=== PATIENT | female | born 1980 | race Caucasian/White ===

== ENCOUNTER 2020-09-02 09:30 | Outpatient (REF) | payer MEDICARE, MEDICAID, SELFPAY | END 2020-09-02 09:31 | disposition home or self-care (01) | LOC: HO.LAB 09:30 | PROVIDERS: Visit Provider Internal Medicine | DX: Z20.822 Contact with and (suspected) exposure to COVID-19 (principal) | CPT/HCPCS: C9803; U0003; U0005 ==

== ENCOUNTER 2021-01-01 10:27 | Outpatient (REF) | payer MEDICARE, MEDICAID, SELFPAY ==
[2021-01-01 12:07] LABS: COVID-19 Test Negative (Negative)
== END 2021-01-01 10:28 | disposition home or self-care (01) ==
LOC: HO.LAB 10:27
PROVIDERS: Visit Provider Internal Medicine
DX: Z20.822 Contact with and (suspected) exposure to COVID-19 (principal)
CPT/HCPCS: 36415; 87635; C9803

== ENCOUNTER 2021-01-14 09:08 | Outpatient (REF) | payer MEDICARE, MEDICAID, SELFPAY | END 2021-01-14 09:09 | disposition home or self-care (01) | LOC: HO.LAB 09:08 | PROVIDERS: Visit Provider Internal Medicine | DX: Z20.822 Contact with and (suspected) exposure to COVID-19 (principal) | CPT/HCPCS: C9803; U0003; U0005 ==

== ENCOUNTER 2025-03-06 14:59 | Outpatient (AMB) | payer MEDICARE, MEDICAID, SELFPAY ==
--- NOTE | 2025-03-06 15:28 | A.OFFVIS_ITS ---
Intake Visit Reasons: migraines Allergies No Known Allergies Allergy (Verified 03/01/25 10:26) Medication List - Last Reconciled 03/06/25 by Jeannette Barragan MD galcanezumab-gnlm (Emgality Pen) 120 mg subcut QMONTH 30 days sumatriptan succinate take 1 tab at onset of headache; if no relief may repeat 1 tab after at least 2 hrs; max = 4 tabs/24 hr PO HPI Comments Details: This is a 44-year-old right-handed woman with a history of migraine headaches since age 13. She is currently getting migraines 2 to 3 times a week and they can last from 3-4 hours up to 24 hours. She usually takes Excedrin 2 tablets followed by 25-50 mg of sumatriptan because the sumatriptan makes her too drowsy. Her most recent prophylactic medication was topiramate 50 mg a day, and about 5 years ago propranolol was prescribed by Dr. Mg but she does not remember taking it. She does not have a list of medicines that have been tried in the past, but she has never had any injectables. Apparently, according to Dr. Mg's note from 2019 she has also tried naratriptan and ondansetron in the past. Previous CAT scan of the brain and MRI in 2020 were normal. The migraines can be triggered by stress, strong smells and chocolate. She does not get menstrual cycles. The headache is usually pulsating/ throbbing starting in the right temporal most of the time and can get intense where she is nonfunctional. It can spread to the back of the head. It is associated with nausea, rare vomiting, usually with sensitivity to lights, noises and smells, and some dizziness and difficulty concentrating. Two of her sons also have migraines. She has previously had some head trauma without loss of consciousness. She sleeps from 21:00 to 04:00 fairly sound sleep. She has some mild snoring. Does not wake up gasping for air. She has 2 cups of coffee a day does not drink alcohol and does not smoke. Currently she is only taking sumatriptan p.r.n.. She also complains of memory problems in the last year particularly for short- term memory. She works as a cleaning service and management of homes [facility] Medical History (Updated 03/06/25 @ 15:40 by Jeannette Barragan MD) Fibromyalgia Migraines Review of Systems Const Reports headache(s) and Reports weight gain Eyes Reports blurry vision ENT Reports dizziness, Reports headache(s) and Reports nasal congestion GI Reports constipation and Reports nausea Neuro Reports dizziness, Reports headache(s) and Reports memory loss Psych Reports memory loss Physical Exam Neuro Other: ?Mini Mental Status Exam Level of Consciousness:?Alert.? Orientation:?Knows correct year, month, date, day and season.?Knows correct city, county and state. Knows correct location and floor.? Registration:?Able to register 3 objects.? Attention:?Serial 7's performed accurately.? Recall:?Able to recall 3 out of 3 objects.? Language:?Normal spontaneous speech, fluency, repetition, naming, comprehension, reading, and writing.? Total Score:?30/30.? Neurological Abnormal neurological findings:??none.? Mental Status:?Alert and oriented X 3.?Normal attention, orientation, memory, and affect.? Cranial Nerves:?Pupils are equal, round and reactive to light. Fundoscopy shows normal disc bilaterally. External occular muscles are intact. Visual nugent are full, no ptosis. Face is symmetrical, no facial weakness or droop. Facial sensations are normal. Tongue protrudes in midline. Palate elevates symmetrically. Shoulder shrugging is normal.? Motor Examination:?Normal muscle tone, bulk and strength.?No atrophy or fasciculations.?No drift of the extended upper extremities.?Deep tendon reflex es are 2+.?Plantars are flexor.? Motor Strength:? Proximal Muscles (out of 5):?5 Distal Muscles (out of 5):?5 Neck Flexors (out of 5):?5 Neck Extensors (out of 5):?5 Deltoid (out of 5):?5 Biceps (out of 5):?5 Triceps (out of 5):?5 Serratus Anterior (out of 5):?5 Wrist Extensors (out of 5):?5 APB (out of 5):?5 Finger Spread (out of 5):?5 Ileopsoas (out of 5):?5 Quadriceps (out of 5):?5 Hamstrings (out of 5):?5 Tibialis Anterior (out of 5):?5 Peronei (out of 5):?5 EDB (out of 5):?5 Gastrocnemius (out of 5):?5 Straight Leg Raising:?90 degrees.? Sensory Exam:?Normal light touch, temperature, pinprick, vibration and joint-position sensations.?Rhomberg sign is absent.? Coordination:?No ataxia,?no titubation,?rtvjxt-os-rjou, cwby-ipcy-bwem test, and rapid alternating movements were normal.? Gait Exam:?Within normal limits.? Cerebellar Signs:?Qpgsfe-zi-bnmp and hxpx-rf-qbry is normal.?No dysdiadochokinesia.? Extrapyramidal System:?No tremor or?rigidity, normal facial expressions.?No bradykinesia. No bradyphrenia. Normal arm swing and posture. No propulsion or retropulsion.? Speech:?Normal,?no dysphasia or dysarthria.? General Examination GENERAL APPEARANCE:??normal,?in no acute distress?,?normal,?in no acute distress.? HEAD:??normocephalic,?atraumatic.? EYES:??sclera non-icteric,?conjunctiva clear.? EARS:??auditory canal clear,?tympanic membrane intact, clear.? NOSE:??no lesions.? ORAL CAVITY:??gums normal,?mucosa moist,?no lesions.? THROAT:??clear.? NECK/THYROID:??no cervical lymphadenopathy,?thyroid normal,?neck supple, full range of motion,?no carotid bruit.? SKIN:??no rashes,?no significant birthmarks.? HEART:??S1, S2 normal,?no murmurs?,?S1, S2 normal,?no murmurs.? LUNGS:??clear anteriorly and posteriorly?,?clear anteriorly and posterio rly.? CHEST:??no gross rib deformity,?clear to auscultation.? BACK:??normal exam of spine.? MUSCULOSKELETAL:??normal.? EXTREMITIES:??no edema?,?no edema.? PERIPHERAL PULSES:??normal.? PSYCH:??alert, oriented,?cognitive function intact,?cooperative with exam?,?alert, oriented,?cognitive function intact,?cooperative with exam.? Assessment & Plan Assessment & Plan (1) Migraines: Code(s): G43.909 - Migraine, unspecified, not intractable, without status migrainosus Category: Medical (2) Memory loss: Code(s): R41.3 - Other amnesia Category: Medical Plan Emgality inj monthly for migraine prophylaxis, EEG Orders: Orders EEG Routine Today R41.3 - Other amnesia Medications: New galcanezumab-gnlm (Emgality Pen) 120 mg subcut QMONTH 1 mL 5RF 30 days Coding Level of Care Code New Pt Level 5 (32016) Diagnoses Migraines G43.909 Memory loss R41.3
== END 2025-03-06 15:52 | disposition home or self-care (01) ==
LOC: HO.HSM 14:59
PROVIDERS: Visit Provider Psychiatry & Neurology Neurology
DX: G43.909 Migraine, unspecified, not intractable, without status migrainosus (principal); R41.3 Other amnesia
CPT/HCPCS: 99204

== ENCOUNTER → 2025-03-06 14:59 | Outpatient (BNVA) | payer MEDICARE, MEDICAID, SELFPAY | PROVIDERS: Visit Provider Psychiatry & Neurology Neurology | DX: G43.909 Migraine, unspecified, not intractable, without status migrainosus (principal); R41.3 Other amnesia | CPT/HCPCS: 99202 ==

== ENCOUNTER 2025-04-16 08:15 | Outpatient (REF) | payer MEDICARE, MEDICAID, SELFPAY ==
--- OUTSIDE RECORDS SUMMARY | 2025-04-16 08:18 | XMS_ITS | Clinical Summary ---
Author Organization [facility] it Address [id number] [place] [id number] Care Team Providers Care Dining Service Supervisor Name Role Phone Cherry Monroe MD Primary Care Provider [phone] Surgical History Surgery Date Site/Laterality Comments TUBAL LIGATION PROCEDURE: HISTORICAL TUBAL LIGATION Medical History Medical History Date Comments Asthma 11/16/2017 DX:Asthma Bipolar disorder (CMS/HCC V2 4, CMS/HCC V28) 11/16/2017 DX:Bipolar disorder (HCC) Low grade squamous intraepit helial lesion (LGSIL) on cervical Pap smear 11/16/2017 DX:Low grade squa mous intraepithelial lesion (LGSIL) on cervical Pap smear Migraine with aura 11/16/2017 DX:Migraine w ith aura Obsessive compulsive disorder 11/16/2017 DX :Obsessive compulsive disorder Anxiety and depression 03/01/2018 DX:Anxiet y and depression Varicose veins of both lower extremities with pain 03/01/2018 DX:Varicose veins of both lo wer extremities with pain Family History Medical History Relation Name Comments Stroke Brother Diabetes Father htn Stroke Maternal Grandfather Other: epilepsy Mother diabetes, as thma Relation Name Status Comments Brother Alive Father Maternal Grandfather Alive Mother Alive Social History Tobacco Use Types Packs/Day Years Used Date Smoking Tobacco: Never Smokeless Tobacco: Never Alcohol Use Standard Drinks/Week Comments No 0 (1 standard drink = 0.6 oz pur e alcohol) Comments Unknown Sex and Gender Information Value Date Recorded Sex Assigned at Not on file Legal Sex Female 9:07 AM EST Gender Identity Not on file Sexual Orientation Not on file Plan of Treatment Health Maintenance Due Date Last Done Comments Breast Cancer Screening 1980 Hepatitis B Vaccines (1 of 3 - 19+ 3-dose series) 09/05/1999 Cervical Cancer Screening: P ap Smear 2001 HPV Vaccines (1 - 3-dose SCD M series) 09/05/2007 DTaP,Tdap,and Td Vaccines (4 - Td or Tdap) 07/27/2022 07/27/2012, 06/04/2010, 08/27/2009 Depression Screening 04/19/2024 COVID-19 Vaccine (1 - 2024-2 6 season) 2024 Influenza Vaccine (#1) 2024 RSV Immunization Adult Patients (1 - 1-dose 75+ series) 09/05/2055 Pneumococcal Vaccine: Pediatrics (0 to 5 Years) and At-Risk Patients (6 to 49 Years) Aged Out 03/29/2008 No longer eligible b ased on patient's age to complete this topic HIB Vaccines Aged Out No longer eligi ble based on patient's age to complete this topic Hepatitis A Vaccines Aged Out No long er eligible based on patient's age to complete this topic IPV Vaccines Aged Out No longer eligi ble based on patient's age to complete this topic MMR Vaccines Aged Out No longer eligi ble based on patient's age to complete this topic Meningococcal ACWY Vaccine Aged Out N o longer eligible based on patient's age to complete this topic Meningococcal B Vaccine Aged Out No l onger eligible based on patient's age to complete this topic RSV Immunization Patients Under 20 months Aged Out No longer eligible b ased on patient's age to complete this topic Varicella Vaccines Aged Out No longer eligible based on patient's age to complete this topic Care Teams Dining Service Supervisor Relationship Specialty Start Date End Date Cherry Monroe MD PCP - General Internal Medicine 10/07/17
--- NOTE | 2025-04-16 09:47 | EEG_ITS ---
History: H/O migraine headaches since age 13 - Patient is currently getting headaches 2-3 times a week that can last from 3-4 hours up to 24 hours. Patient reports previous head trauma. Patient also reports memory problems for the last year, particularly short-term memory. Medication: galcanezumab - gnlm, sumatriptan succinate Technical Description Photic Stimulation: completed Hyperventilation: performed - good effort Behavioral State: pleasant State of Consciousness: awake and drowsy Skull Defect: none Sedation: none Handedness: right Duration: 32 min 52 sec Environmental Health And Safety Manager Comments: Last Meal: 04/15/25 7pm Time / date of last symptom: 04/14/25 Description: MTDD
== END 2025-04-16 08:16 ==
LOC: HO.NEURO 08:15
PROVIDERS: Visit Provider Psychiatry & Neurology Neurology
DX: R41.3 Other amnesia (principal)
CPT/HCPCS: 95816

== ENCOUNTER → 2025-04-16 09:47 | Outpatient (BNV) | payer MEDICARE, MEDICAID, SELFPAY | PROVIDERS: Visit Provider Psychiatry & Neurology Neurology | DX: R41.3 Other amnesia (principal) | CPT/HCPCS: 95816 ==